=== PATIENT | female | born 1945 | race Caucasian/White ===

== ENCOUNTER 2020-07-17 21:56 | Inpatient (IN) | payer MEDICARE, MEDICAID, OTHER ==
[2020-07-17] MEDS ORDERED: Dextrose 5% in Water 1,000 ML IV PRN (22:38)
[2020-07-17] MEDS ORDERED: Ondansetron PF 4 MG/2 ML Vial IVP PRN (22:38)
[2020-07-17] MEDS ORDERED: Insulin Regular 300 UNITS/3 ML VIAL SC PRN ×2 (22:38)
[2020-07-17] MEDS ORDERED: Dextrose 50% Abboject 50 ML SYRINGE SLOW IVP PRN (22:38)
[2020-07-17] MEDS ORDERED: Cyclobenzaprine 10 MG TAB PO PRN (22:53)
[2020-07-17] MEDS ORDERED: Ibuprofen 200 MG TAB PO PRN (22:53)
[2020-07-17] MEDS ORDERED: traMADol HCl 50 MG TAB PO PRN (22:53)
[2020-07-17] MEDS ORDERED: Lisinopril 10 MG TAB PO SCH ×2 (23:00→23:40)
[2020-07-18 00:01] VITALS: BMI 24.9
[2020-07-18] MEDS: Sodium Chloride 0.9% 1,000 ML IV SCH ×3 (00:36→22:16)
[2020-07-18] MEDS: Acetaminophen 500 MG TAB PO SCH ×5 (00:37→23:24)
--- NOTE | 2020-07-18 00:40 | HP ---
REQUESTING PHYSICIAN: Dr. Doll. CONSULTS: Orthopedic Surgery, Dr. Nelson. CHIEF COMPLAINT: Multiple falls at the [facility]. HISTORY OF PRESENT ILLNESS: This is a 74-year-old female with past medical history of dementia, CVA, and coronary artery disease. The patient is a resident at the [facility]. Staff reports the patient fell multiple times today and they noticed that she was ambulating differently. The patient typically oriented to person only, which is her baseline. The patient was initially evaluated at [facility] and found to have a left subcapital inferior femoral neck hip fracture. Orthopedics was called and requested transfer to [facility] for possible repair of her left hip fracture. The patient is currently resting on her left side, in no distress. The patient becomes agitated with exam. The patient does not answer any questions and does not follow any commands. The patient does say the word "baby" multiple times when attempting to do an exam. There were no reports of the patient hitting her head or losing consciousness. There were no obvious injuries noted. REVIEW OF SYSTEMS: A 10-point review of systems is negative unless otherwise indicated in the above HPI. PAST MEDICAL HISTORY: Dementia, cerebrovascular accident, Alzheimer's, hypertension, type 2 diabetes, vitamin D deficiency, anxiety, and depression. PAST SURGICAL HISTORY: Unable to obtain. ALLERGIES: NO KNOWN DRUG ALLERGIES. MEDICATIONS: 1. Mirtazapine 15 mg q.h.s. 2. Amlodipine 7.5 mg daily. 3. Aspirin 81 mg daily. 4. Buspirone 5 mg three times a day. 5. Lisinopril 20 mg q.a.m. 6. Metformin 1000 mg b.i.d. 7. [place]-3 daily. 8. Senokot as needed. 9. Vitamin D3 of 4000 units daily. SOCIAL HISTORY: The patient lives at [facility]. All subjective information gathered from previous ER record as the patient is unable to answer questions. PHYSICAL EXAMINATION: Vital signs: Resp 18, HR 63, BP 134/64, Spo2 100% RA, Temp 98.0 GENERAL: Elderly female, appears comfortable, in no distress, becomes agitated with assessment. HEENT: Head is atraumatic and normocephalic. Pupils are equal. Mucous membranes are moist. No cervical spine tenderness. RESPIRATORY: Equal chest rise and fall. Bilateral breath sounds clear. No wheezing, rales, or rhonchi. CARDIAC: Regular rate and regular rhythm. No murmurs. No pedal edema. ABDOMEN: Soft, nontender, and nondistended. EXTREMITIES: Moves all extremities. Neurovascularly intact x4. No obvious injuries. NEUROLOGIC: Last [place] Coma Scale E3, V3, M5. LABORATORY DATA: WBC 9.0, RBC 4.56, hemoglobin 13.0, hematocrit 40.1, platelets 178. Sodium 139, potassium 4.0, chloride 104, carbon dioxide 25, BUN 20, creatinine 0.82, estimated GFR 69, glucose 138, calcium 10.2. AST 13, ALT 10, alkaline phosphatase 76, and albumin 4.2. DIAGNOSTICS: 1. Hip x-ray, impression, evidence of subcapital fracture, inferior aspect of the left femoral neck. 2. Chest x-ray, impression, small calcified granuloma in the peripheral right lung. No other acute findings. 3. A 12-lead EKG sinus rhythm, no ST-segment abnormalities. ASSESSMENT: 1. Ground level fall. 2. Left subcapital inferior femoral neck hip fracture. 3. History of dementia, Alzheimer's, hypertension, type 2 diabetes, coronary artery disease, cerebrovascular accident, anxiety, and depression. PLAN: Admit the patient to the surgical floor. N.p.o. after midnight. Diabetic diet pre and postop. Pain control and supportive care. Physical and occupational therapy to evaluate and treat postop. Accu-Cheks before meals and at bedtime and a mild sliding scale. Maintenance IV fluids normal saline at 100 mL an hour x1 bag. Pending Orthopedic surgery's evaluation, but most likely will be going to the OR tomorrow for repair. The plan will be discussed with the attending after this dictation. Job ID: [id number] MTDD
[2020-07-18 05:34] LABS: #Eosinphils 0.3 thou/uL (0.0-0.7); #Lymphocytes 1.8 thou/uL (1.20-3.40); #Monocytes 0.5 thou/uL (0.11-0.59); #Neutrophils 2.6 thou/uL (1.40-6.50); %Basophils 0.7 % (0.0-1.0); %Eosinophils 5.3 % (0.0-10.0); %Lymphocytes 35.3 % (21.0-51.0); %Monocytes 9.2 % (0.0-10.0); %Neutrophils 49.4 % (42.0-75.0); Hemoglobin 11.2 g/dL (12.0-16.0); Mean Corpuscular HGB CONC 34.3 g/dL (32.0-36.0); Mean Corpuscular Hemoglobin 29.8 pg (27.0-31.0); Mean Corpuscular Volume 86.9 fL (78.0-98.0); Mean Platelet Volume 8.4 fL (7.4-10.4); Platelet Count 158 thou/uL (130-400); RBC Distribution Width 11.7 % (11.5-14.5); Red Blood Cell (RBC) Count 3.77 mill/uL (4.20-5.40); White Blood Cell (WBC) Count 5.2 thou/uL (4.8-10.8)
[2020-07-18 05:56] LABS: Phosphorus 2.8 mg/dL (2.3-4.7)
[2020-07-18 05:59] LABS: Anion Gap 12 mmol/L (10-20); BUN (Urea Nitrogen) 17 mg/dL (9.8-20.1); Calc. Creatinine Clearance 72 mL/min (70-130); Calcium 9.3 mg/dL (7.8-10.44); Carbon Dioxide 25 mmol/L (23-31); Chloride 107 mmol/L (98-107); Estimated GFR-MDRD 75; Glucose 98 mg/dL (83-110); Magnesium 1.5 mg/dL (1.6-2.6); Potassium 3.5 mmol/L (3.5-5.1); Sodium 140 mmol/L (136-145)
[2020-07-18] MEDS ORDERED: Potassium Phosphate 30 MMOL, Magnesium Sulfate 4 GM in Sodium Chloride 0.9% 250 ML IVPB SCH (07:15)
[2020-07-18] MEDS ORDERED: CEFAZOLIN 2 GM in Premix Bag 1 BAG IVPB SCH (07:30)
[2020-07-18] MEDS: Polyethylene Glycol 3350 17 GM Packet PO SCH (08:13)
[2020-07-18] MEDS: busPIRone HCl 5 MG TAB PO SCH ×3 (08:13→20:33)
[2020-07-18] MEDS: Lisinopril 20 MG TAB PO SCH (08:13)
[2020-07-18] MEDS: Senokot S 8.6-50 MG TAB PO SCH ×2 (08:14→20:41)
[2020-07-18] MEDS: Cholecalciferol 1,000 UNITS (25 MCG) TAB PO SCH (08:14)
[2020-07-18] MEDS: Amlodipine 5 MG TAB PO SCH (08:15)
[2020-07-18] MEDS: Famotidine 20 MG TAB PO SCH ×2 (08:15→20:41)
--- NOTE | 2020-07-18 08:27 | CON ---
DATE OF CONSULTATION: CHIEF COMPLAINT: Left hip pain. REQUESTING PHYSICIAN: Dr. Doll. HISTORY OF PRESENT ILLNESS: Ms. Rodriges is a 74-year-old female, who fell from a standing position. She ambulates well. She does live in a group home for advanced dementia. She does not use a walker or cane at baseline. Her group home staff witnessed her fall. She was limping, but was able to get up. She was sent to the emergency department for x-rays, which demonstrated a femoral neck fracture. She was transferred to [facility] for further care. She has been resting comfortably. She is sleeping currently. She does have a high level of confusion at baseline. REVIEW OF SYSTEMS: Difficult to obtain, the patient does complain of left hip pain. PAST MEDICAL HISTORY: 1. Dementia. 2. Hypertension. 3. Diabetes. 4. Vitamin D deficiency. 5. CVA. 6. Anxiety. 7. Depression. PAST SURGICAL HISTORY: Currently, unknown. ALLERGIES: NO KNOWN DRUG ALLERGIES. SOCIAL HISTORY: The patient does not require any assistive device for mobilization. She lives in a nursing facility. She denies any tobacco, alcohol, or drug use. IMAGES: X-rays of the left hip and pelvis demonstrate a nondisplaced left femoral neck fracture. PHYSICAL EXAMINATION: VITAL SIGNS: Temperature is 97.7, pulse is 72, 96% on room air, blood pressure is 120/78. GENERAL: She is alert, but does not answer questions appropriately. She is lying supine. HEENT: Normocephalic, atraumatic. RESPIRATORY: Breathing comfortably. CARDIOVASCULAR: Pulses palpable and regular peripherally. MUSCULOSKELETAL: The patient's left lower extremity has pain with motion at the hip. She is able to flex and extend the feet and ankles bilaterally. She has equal leg length. Minimal swelling. Feet are warm and well perfused. IMPRESSION: Left nondisplaced femoral neck fracture in an elderly female. PLAN: At this point, I think the patient would benefit from percutaneous screw fixation to stabilize her fracture. I am worried if we do not do this, she will develop a displaced femoral neck fracture, which would require more involved surgical intervention. I have reviewed the plan with her family. They want to proceed. Goal is to provide the ability to mobilize and provide pain relief. She will be n.p.o. until surgery. She will have antibiotics on-call to the operating room. Job ID: [id number]
[2020-07-18] MEDS ORDERED: FLU VACC QS2020-21(65YR UP)/PF 240 MCG/0.7 ML SYRINGE IM ONE (09:00)
[2020-07-18] MEDS ORDERED: Non-Formulary Item 1 EACH (Cholecalciferol (Vitamin D3) [Vitamin D3] 5,000 UNITS Capsule) PO SCH (09:00)
[2020-07-18] MEDS ORDERED: Non-Formulary Item 1 EACH (Amlodipine Besylate [Amlodipine Besylate] 2.5 MG Tablet) PO SCH (09:00)
[2020-07-18 10:20] LABS: Bacteria/HPF None Seen HPF (None Seen); Bilirubin Negative (Negative); Blood, Urine Negative (Negative); Clarity Clear (Clear); Glucose, Urine (Dipstick) Normal (Negative); Ketone, Urine 10 mg/dL (Negative); Leukocyte Negative Leu/uL (Negative); Nitrite Negative (Negative); Protein, Urine (Dipstick) 20 mg/dL (Neg-Trace); RBC/HPF 0-3 HPF (0-3); Specific Gravity, Urine 1.027 (1.002-1.036); Squamous Epithelial 0-3 HPF (0-3); WBC/HPF 0-3 HPF (0-3); pH, Urine 5.5 (5.0-9.0)
[2020-07-18 11:09] LABS: SARS-CoV-2 MS2 Positive; SARS-CoV-2 N Gene Negative; SARS-CoV-2 S Gene Negative; SARS-CoV-2 by NAA Not Detected (NotDetected); SARS-CoV-2 orf1ab Negative
[2020-07-18] MEDS ORDERED: PROPOFOL 200 MG/20 ML VIAL ONE (12:41)
[2020-07-18] MEDS ORDERED: Ondansetron HCl/PF 4 MG/2 ML Vial IVP PRN (16:21)
--- NOTE | 2020-07-18 18:50 | RAD ---
LEFT HIP: 07/18/20 Three fluoroscopic images are presented from the OR. INDICATIONS: Open reduction and internal fixation left hip. FINDINGS/IMPRESSION: These images demonstrate three screws transfixing the left femoral neck. POS: AGW
[2020-07-18] MEDS: Mirtazapine 15 MG TAB PO SCH (20:33)
[2020-07-18] MEDS: Donepezil HCl 10 MG TAB PO SCH (20:33)
--- NOTE | 2020-07-18 22:03 | OP ---
DATE OF PROCEDURE: 07/18/2020 PROCEDURE PERFORMED: Left femoral neck fracture percutaneous screw fixation. PREOPERATIVE DIAGNOSIS: Left femoral neck fracture, nondisplaced. POSTOPERATIVE DIAGNOSIS: Left femoral neck fracture, nondisplaced. COMPLICATIONS: None. ESTIMATED BLOOD LOSS: 50 mL. ANESTHESIA: General. INDICATIONS FOR PROCEDURE: Ms. Rodriges is a 74-year-old female who has fallen and fractured her left femoral neck. She has been indicated for percutaneous screw fixation of the femoral neck to preserve alignment and allow healing. Goal is to allow her to continue to mobilize. Risks have been reviewed in detail. Her daughter and the patient are aware and want to proceed. DESCRIPTION OF PROCEDURE: Ms. Rodriges was identified in the preoperative holding area. Her correct extremity was marked. She was carried to the operating room. She was positioned supine. General anesthesia was induced. A multidisciplinary time-out was performed. The left lower extremity was prepped and draped in sterile fashion. We began the procedure with evaluation of the hip under intraoperative x-ray. We pulled gentle traction and rotation of the hip for an anatomic reduction. We then made a small incision laterally after prepping and draping the limb. We inserted a guide pin in the inferior position of the femoral neck. We then placed 2 guide pins superiorly in an inverted triangle pattern. We overdrilled the guide pins. We then measured the length. We placed three 7.3 mm screws over the guide pins. Again, we checked imaging. These were well placed in the femoral head and stabilized the fracture. We took final images. We irrigated and closed the wound. A sterile dressing was applied. The patient was taken to the recovery room in good condition. Job ID: [id number]
[2020-07-18] MEDS: CEFAZOLIN 2 GM in Premix Bag 1 BAG IVPB SCH (23:18)
[2020-07-19 05:43] LABS: #Eosinphils 0.1 thou/uL (0.0-0.7); #Lymphocytes 1.4 thou/uL (1.20-3.40); #Monocytes 0.6 thou/uL (0.11-0.59); %Basophils 0.6 % (0.0-1.0); %Eosinophils 1.7 % (0.0-10.0); %Lymphocytes 19.1 % (21.0-51.0); %Monocytes 7.9 % (0.0-10.0); %Neutrophils 70.7 % (42.0-75.0); Hemoglobin 11.3 g/dL (12.0-16.0); Mean Corpuscular HGB CONC 33.1 g/dL (32.0-36.0); Mean Corpuscular Volume 87.4 fL (78.0-98.0); Mean Platelet Volume 8.2 fL (7.4-10.4); Platelet Count 160 thou/uL (130-400); RBC Distribution Width 11.9 % (11.5-14.5); Red Blood Cell (RBC) Count 3.92 mill/uL (4.20-5.40); White Blood Cell (WBC) Count 7.1 thou/uL (4.8-10.8)
[2020-07-19 06:10] LABS: Anion Gap 15 mmol/L (10-20); BUN (Urea Nitrogen) 12 mg/dL (9.8-20.1); Calc. Creatinine Clearance 76 mL/min (70-130); Calcium 8.6 mg/dL (7.8-10.44); Carbon Dioxide 20 mmol/L (23-31); Chloride 105 mmol/L (98-107); Estimated GFR-MDRD 80; Glucose 106 mg/dL (83-110); Magnesium 2.1 mg/dL (1.6-2.6); Phosphorus 2.8 mg/dL (2.3-4.7); Potassium 3.9 mmol/L (3.5-5.1); Sodium 136 mmol/L (136-145)
[2020-07-19] MEDS: Acetaminophen 500 MG TAB PO SCH ×3 (06:27→18:46)
[2020-07-19] MEDS: CEFAZOLIN 2 GM in Premix Bag 1 BAG IVPB SCH (09:17)
[2020-07-19] MEDS: Amlodipine 5 MG TAB PO SCH (12:17)
[2020-07-19] MEDS: busPIRone HCl 5 MG TAB PO SCH ×3 (12:17→21:19)
[2020-07-19] MEDS: Aspirin 81 mg Enteric Coated Tablet PO SCH (12:17)
[2020-07-19] MEDS: Lisinopril 20 MG TAB PO SCH (12:18)
[2020-07-19] MEDS: Senokot S 8.6-50 MG TAB PO SCH ×3 (12:18→21:19)
[2020-07-19] MEDS: Polyethylene Glycol 3350 17 GM Packet PO SCH (12:18)
[2020-07-19] MEDS: Cholecalciferol 1,000 UNITS (25 MCG) TAB PO SCH (12:18)
[2020-07-19] MEDS: Famotidine 20 MG TAB PO SCH ×2 (12:18→21:19)
--- NOTE | 2020-07-19 12:31 | PRG ---
DATE OF SERVICE: 07/18/2020 SUBJECTIVE: This is patient day 2, status post left subcapital inferior femoral neck hip fracture after multiple falls at [facility]. Ortho, Dr. Nelson has seen and plans to do percutaneous screw fixation today in the operating room. The patient has a history of dementia, CVA, and coronary artery disease. She is typically only oriented to person only, which is her baseline. When asked about pain, she denies currently being in pain. No acute events overnight. OBJECTIVE: VITAL SIGNS: Temperature 97.6 Fahrenheit, pulse 65, respiratory rate 16, O2 saturation 97 on room air, blood pressure 154/87. GENERAL: Elderly female, appears comfortable, in no distress. HEENT. Head is atraumatic and normocephalic. Pupils are equal, membranes are moist. RESPIRATORY: Equal chest rise and fall. Bilateral breath sounds clear. No wheezing, rales, or rhonchi. CARDIAC: Regular rate and rhythm. No murmurs. No pedal edema. ABDOMEN: Soft, nontender, nondistended. EXTREMITIES: Moves all extremities. Neurovascular intact x4. No obvious injuries. NEUROLOGIC: Shannan Coma Scale is E3, V3, M5. LABORATORY DATA: Hemoglobin 11.2, hematocrit 32.8, platelets 158. Sodium 140, potassium 3.5, Chloride 107, CO2 of 25, creatinine 0.76, glucose 98, magnesium 1.5, calcium 9.3, phosphorus 2.8. ASSESSMENT: 1. Ground level fall. 2. Left subcapital inferior femoral neck hip fracture. 3. History of dementia, Alzheimer's; hypertension; type 2 diabetes; coronary artery disease; cerebrovascular accident; anxiety and depression. PLAN: Per ortho, the patient will go to the operating room today. Continue pain control and supportive care. Diabetes diet postop. Physical and Occupational Therapy to evaluate and treat postop. Continue Accu-Cheks before meals and at bedtime, Humalog sliding scale. This patient was seen by Dr. Osborne on morning rounds. Plan was discussed with the patient, who is in agreement. Job ID: [id number]
--- NOTE | 2020-07-19 17:45 | PRG ---
DATE OF SERVICE: 07/19/2020 SUBJECTIVE: The patient is hospital day 3, status post a ground level fall in which she sustained a left femoral neck fracture and she underwent percutaneous screw fixation yesterday, which she tolerated well. This morning, there was report no issues overnight other than she was a little bit sleepier than usual, which is not unusual for someone of her age postoperatively. OBJECTIVE: VITAL SIGNS: Temperature 98.0, heart rate 94, blood pressure 137/84, respirations 14, oxygen saturation 94% on room air. GENERAL: The patient is resting comfortably in bed. She was asleep. She would open her eyes to loud verbal stimuli, but then would go back to sleep. She appeared in no distress. LUNGS: Clear to auscultation bilaterally. HEART: Regular rate and rhythm. ABDOMEN: Soft, nondistended with hypoactive bowel sounds. EXTREMITIES: The patient did appear to be moving all 4 extremities. Her capillary refill is less than 3 seconds. Pulses are 2+. NEUROLOGIC: Her [place] Coma Scale is 11. It is E3, V3, M5. LABORATORY FINDINGS: White blood cell count 7.1, hemoglobin 11.3, hematocrit 34.2, platelets 160. Sodium 136, potassium 3.9, chloride 105, CO2 of 20, BUN 12, creatinine 0.72, glucose 106, magnesium 2.1, phosphorus 2.8. RADIOGRAPHS: No radiographs to review this morning. ASSESSMENT AND PLAN: 1. Status post ground level fall. 2. Status post percutaneous screw fixation of left subcapital inferior femoral neck fracture. 3. History of dementia, Alzheimer's, hypertension, type 2 diabetes, coronary artery disease, CVA, anxiety and depression. PLAN: Plan will be to continue supportive care, encourage physical and occupational therapy and await placement. At the time of this dictation, the nurses informed me that the patient has been refusing her medications. Her vital signs remained stable and she appears in no distress. We will continue to monitor to see if she requires her blood pressure medicine and if she requires pain medications. The patient was evaluated and examined this morning with Dr. Osborne during rounds. Job ID: [id number]
[2020-07-19] MEDS: Mirtazapine 15 MG TAB PO SCH (21:19)
[2020-07-19] MEDS: Donepezil HCl 10 MG TAB PO SCH (21:19)
[2020-07-20] MEDS: Acetaminophen 500 MG TAB PO SCH ×4 (00:34→17:10)
--- NOTE | 2020-07-20 00:50 | PRG ---
DATE OF SERVICE: 07/19/2020 SUBJECTIVE: This is a 74-year-old female, postop day #1, status post left hip fracture sustained after ground level fall. Upon my evaluation this evening, nursing staff reported no concerns. OBJECTIVE: VITAL SIGNS: Reviewed and as documented in the electronic medical record. GENERAL: The patient is resting in bed, in no acute distress. Eyes closed. Appears comfortable. PULMONARY: Normal work of breathing. Symmetric rise. ASSESSMENT AND PLAN: As documented in the electronic medical record and progress note dated 07/19/2020. Continue supportive care as ordered. Job ID: [id number]
[2020-07-20] MEDS: Aspirin 81 mg Enteric Coated Tablet PO SCH (10:40)
[2020-07-20] MEDS: Lisinopril 20 MG TAB PO SCH (10:40)
[2020-07-20] MEDS: Amlodipine 5 MG TAB PO SCH (10:41)
[2020-07-20] MEDS: busPIRone HCl 5 MG TAB PO SCH ×2 (10:42→16:32)
[2020-07-20] MEDS: Polyethylene Glycol 3350 17 GM Packet PO SCH (10:47)
[2020-07-20] MEDS: Cholecalciferol 1,000 UNITS (25 MCG) TAB PO SCH (10:47)
[2020-07-20] MEDS: Senokot S 8.6-50 MG TAB PO SCH ×2 (10:52)
[2020-07-20] MEDS: Famotidine 20 MG TAB PO SCH (10:54)
[2020-07-20 15:48] VITALS: BP 120/70; TEMP 98.4
== END 2020-07-20 19:13 | DRG 482 ==
LOC: ERS 21:56 → SURG A 22:51
PROVIDERS: ADMIT Surgery; ATTEND Surgery
PROC: 0QH734Z Insertion of Internal Fixation Device into Left Upper Femur, Percutaneous Approach (ICD-10-PCS; principal; 2020-07-18)
DX: S72.012A Unspecified intracapsular fracture of left femur, initial encounter for closed fracture (principal); F02.80 Dementia in other diseases classified elsewhere, unspecified severity, without behavioral disturbance, psychotic disturbance, mood disturbance, and anxiety; Z20.828 Contact with and (suspected) exposure to other viral communicable diseases; I10 Essential (primary) hypertension; G30.9 Alzheimer's disease, unspecified; F32.9 Major depressive disorder, single episode, unspecified; F41.9 Anxiety disorder, unspecified; J31.0 Chronic rhinitis; I25.10 Atherosclerotic heart disease of native coronary artery without angina pectoris; E55.9 Vitamin D deficiency, unspecified; E11.9 Type 2 diabetes mellitus without complications; W19.XXXA Unspecified fall, initial encounter; Y92.129 Unspecified place in nursing home as the place of occurrence of the external cause; Z79.899 Other long term (current) drug therapy; Z79.84 Long term (current) use of oral hypoglycemic drugs
CPT/HCPCS: 36415; 36416; 76000; 80048; 81001; 83735; 84100; 85025; 87635; 99285; C1713; C1769; G0390; J0690; J2405; J2704; J3475; J7030; U0003